=== PATIENT | male | born 1970 | race Caucasian/White ===

== ENCOUNTER 2017-11-13 21:38 | Emergency (ER) | payer BC ==
[2017-11-13] MEDS ORDERED: Sodium Chloride 0.9% 80 ML IV SCH (21:45)
[2017-11-13] MEDS ORDERED: Iopamidol 612 MG/ML 100 ML Bottle IV SCH (21:45)
[2017-11-13] MEDS ORDERED: HYDROmorphone 1 MG/ML Syringe IVPUSH ONE ×2 (21:50→22:35)
[2017-11-13] MEDS ORDERED: Ondansetron 4 MG/2 ML SDV IVPUSH ONE (21:50)
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
[2017-11-13] MEDS: Sodium Chloride 0.9% 10 ML Syringe FLUSH PRN ×2 (22:07→22:35)
[2017-11-13] MEDS ORDERED: Lactated Ringers 1,000 ML IV ONE (22:35)
[2017-11-13] MEDS ORDERED: fentaNYL 100 MCG/2 ML SDV IVPUSH ONE (23:50)
[2017-11-14] MEDS ORDERED: Lidocaine 2% Jelly 10 ML Urojet MUCMEM ONE (01:29)
[2017-11-14 01:56] VITALS: BP 129/70
== END 2017-11-14 01:45 ==
LOC: JP.ED 21:38
DX: M25.511 Pain in right shoulder (principal); I10 Essential (primary) hypertension; Z88.5 Allergy status to narcotic agent; Z88.1 Allergy status to other antibiotic agents; Z79.899 Other long term (current) drug therapy; V29.9XXA Motorcycle rider (driver) (passenger) injured in unspecified traffic accident, initial encounter
CPT/HCPCS: 36415; 70450; 71260; 72125; 74177; 80053; 81001; 85025; 96361; 96374; 96375; 96376; 99285; G0480; J1170; J2405; J3010; J7030; J7050; J7120; Q9967